=== PATIENT | female | born 1965 | race Caucasian/White ===

== ENCOUNTER 2022-09-11 12:24 | Day surgery (SDC) | payer OTHER ==
[~2022-09-11] VITALS: Ht 175.3 cm; Wt 82.6 kg
[~2022-09-11 12:24] MED LIST: ALPR1 PO; AMIT50 PO; BUPR100ER PO; CYCL10 PO; DILT180ER PO; DOCU100 PO; MAGOXI400 PO; PRAZ2 PO; PREG300 PO; ROPI2 PO; SENN187 PO
--- NOTE | 2022-09-11 12:46 | NUR ---
09/11/22 1246 Yessi Peña RIGHT EYE AT [address] RIGHT EYE AT 1242 BY [email or web address].[email or web address]
[2022-09-11] MEDS ORDERED: PROP10 (12:47)
[2022-09-11] MEDS ORDERED: TRAZ50 (12:48)
[2022-09-11] MEDS ORDERED: BUSP5 (12:48)
== END 2022-09-11 14:25 | disposition home or self-care (01) ==
LOC: ORSCSDS 12:24
PROVIDERS: Ophthalmology
PROC: 08RJ3JZ Replacement of Right Lens with Synthetic Substitute, Percutaneous Approach (ICD-10-PCS; principal; 2022-09-11 13:30)
DX: H25.11 Age-related nuclear cataract, right eye (principal); H52.201 Unspecified astigmatism, right eye; J44.9 Chronic obstructive pulmonary disease, unspecified; Z79.899 Other long term (current) drug therapy; Z87.891 Personal history of nicotine dependence
CPT/HCPCS: J2001; J2250; J3010; J3301; J7040; V2632

== ENCOUNTER 2022-09-18 13:45 | Day surgery (SDC) | payer OTHER ==
[~2022-09-18] VITALS: Ht 167.6 cm; Wt 83.8 kg
[~2022-09-18 13:45] MED LIST changes: +BUSP5; +PROP10; +TRAZ50
[2022-09-18] MEDS ORDERED: MELO7.5 PO (14:09)
[2022-09-18] MEDS ORDERED: ESTRADIOL1 EAC2 TOP (14:09)
== END 2022-09-18 15:40 | disposition home or self-care (01) ==
LOC: ORSCSDS 13:45
PROVIDERS: Ophthalmology
PROC: 08RK3JZ Replacement of Left Lens with Synthetic Substitute, Percutaneous Approach (ICD-10-PCS; principal; 2022-09-18 15:00)
DX: H25.12 Age-related nuclear cataract, left eye (principal); H52.202 Unspecified astigmatism, left eye; Z96.1 Presence of intraocular lens; J45.909 Unspecified asthma, uncomplicated; Z79.899 Other long term (current) drug therapy
CPT/HCPCS: J2001; J2250; J3010; J3301; J7040; V2632